=== PATIENT | female | born 1990 | race African-American/Black ===

== ENCOUNTER 2016-12-09 10:48 | Emergency (ER) | payer SELFPAY ==
--- NOTE | 2016-12-09 11:18 | ER Document Report ---
ED Medical Screen (RME) - General Stated Complaint: FEVER Notes: 26 yo female c/o bodyaches, cough, fever x 3 days. no flu shot TRAVEL OUTSIDE OF THE [place] IN LAST 30 DAYS: No - Related Data Allergies/Adverse Reactions: Penicillins Allergy (Verified 12/09/16 11:16) Past Medical History Psychiatric Medical History: Reports: Hx Anxiety - Immunizations Immunizations up to date: Yes Hx Diphtheria, Pertussis, Tetanus Vaccination: Yes - 2008 Physical Exam - Vital signs Vitals: Temp Pulse Resp BP Pulse Ox 98.2 F 95 12 108/60 100 12/09/16 10:53 12/09/16 10:53 12/09/16 10:53 12/09/16 10:53 12/09/16 10:53 Course - Vital Signs Vital signs: Temp Pulse Resp BP Pulse Ox 98.2 F 95 12 108/60 100 12/09/16 10:53 12/09/16 10:53 12/09/16 10:53 12/09/16 10:53 12/09/16 10:53
--- NOTE | 2016-12-09 13:47 | ER Document Report ---
[id number] Mode of Arrival: Ambulatory Information source: Patient Notes: 26 yr old female presents with complaints of body aches, joint pain, fevers and cough of 2 day duration. pt notes she did not have influenza vaccine this year and works at day care with multiple flu exposures TRAVEL OUTSIDE OF THE [place] IN LAST 30 DAYS: No - HPI Onset: Yesterday Onset/Duration: Persistent Quality of pain: Achy Severity: Mild Pain Level: 1 Associated symptoms: Body/muscle aches, Nonproductive cough Exacerbated by: Denies Relieved by: Denies Similar symptoms previously: No Recently seen / treated by doctor: No - Related Data Allergies/Adverse Reactions: Penicillins Allergy (Verified 12/09/16 11:16) Past Medical History - Social History Smoking Status: Never Smoker Cigarette use (# per day): No Chew tobacco use (# tins/day): No Smoking Education Provided: No Frequency of alcohol use: None Drug Abuse: None Family History: Reviewed & Not Pertinent, Hypertension Patient has suicidal ideation: No Patient has homicidal ideation: No Renal/ Medical History: Denies: Hx Peritoneal Dialysis Psychiatric Medical History: Reports: Hx Anxiety Past Surgical History: Reports: Hx Oral Surgery - wisdom teeth - Immunizations Immunizations up to date: Yes Hx Diphtheria, Pertussis, Tetanus Vaccination: Yes - 2008 Review of Systems - Review of Systems Notes: REVIEW OF SYSTEMS: CONSTITUTIONAL : admits ot fevers EENT: admtis t sore throat CARDIOVASCULAR: Denies chest pain. Denies palpitations or racing or irregular heart beat. Denies ankle edema. RESPIRATORY: Denies cough, cold, or chest congestion. Denies shortness of breath, difficulty breathing, or wheezing. GASTROINTESTINAL: Denies abdominal pain or distention. Denies nausea, vomiting , or diarrhea. Denies blood in vomitus, stools, or per rectum. Denies black, tarry stools. Denies constipation. GENITOURINARY: Denies difficulty urinating, painful urination, burning, frequency, blood in urine, or discharge. FEMALE GENITOURINARY: Denies vaginal bleeding, heavy or abnormal periods, irregular periods. Denies vaginal discharge or odor. MUSCULOSKELETAL: admits to body aches SKIN: Denies rash, lesions or sores. HEMATOLOGIC : Denies easy bruising or bleeding. LYMPHATIC: Denies swollen, enlarged glands. NEUROLOGICAL: Denies confusion or altered mental status. Denies passing out or loss of consciousness. Denies dizziness or lightheadedness. Denies headache. Denies weakness or paralysis or loss of use of either side. Denies problems with gait or speech. Denies sensory loss, numbness, or tingling. Denies seizures. PSYCHIATRIC: Denies anxiety or stress. Denies depression, suicidal ideation, or homicidal ideation. ALL OTHER SYSTEMS REVIEWED AND NEGATIVE. Dictation was performed using [employer] voice recognition software PHYSICAL EXAMINATION: GENERAL: Well-appearing, well-nourished and in no acute distress. HEAD: Atraumatic, normocephalic. EYES: Pupils equal round and reactive to light, extraocular movements intact, conjunctiva are normal. ENT: Nares patent, oropharynx clear without exudates. Moist mucous membranes. NECK: Normal range of motion, supple without lymphadenopathy LUNGS: Breath sounds clear to auscultation bilaterally and equal. No wheezes rales or rhonchi. HEART: Regular rate and rhythm without murmurs ABDOMEN: Soft, nontender, nondistended abdomen. No guarding, no rebound. No masses appreciated. Female : deferred Musculoskeletal: Normal range of motion, no pitting or edema. No cyanosis. NEUROLOGICAL: Cranial nerves grossly intact. Normal speech, normal gait. Normal sensory, motor exams PSYCH: Normal mood, normal affect. SKIN: Warm, Dry, normal turgor, no rashes or lesions noted. Physical Exam - Vital signs Vitals: Temp Pulse Resp BP Pulse Ox 98.2 F 95 12 108/60 100 12/09/16 10:53 12/09/16 10:53 12/09/16 10:53 12/09/16 10:53 12/09/16 10:53 Course - Re-evaluation Re-evalutation: 12/09/16 15:57 Patient is positive for the fluid, given that is within 48 hours I will start the patient on Tamiflu and is otherwise stable for discharge Patient given restrict return precautions After performing a Medical Screening Examination, I estimate there is LOW risk for ACUTE CORONARY SYNDROME, RESPIRATORY FAILURE, SEPSIS OR MENINGITIS, thus I consider the discharge disposition reasonable. The patient and I have discussed the diagnosis and risks, and we agree with discharging home with close follow- up. We also discussed returning to the Emergency Department immediately if new or worsening symptoms occur. We have discussed the symptoms which are most concerning (e.g., changing or worsening pain, trouble swallowing or breathing, neck stiffness, fever) that necessitate immediate return. - Vital Signs Vital signs: Temp Pulse Resp BP Pulse Ox 98.3 F 79 20 99/57 L 97 12/09/16 14:02 12/09/16 14:02 12/09/16 14:02 12/09/16 14:02 12/09/16 14:02 Discharge - Discharge Clinical Impression: Influenza, Body aches Condition: Stable Disposition: HOME, SELF-CARE Instructions: Influenza ([facility]) [id number] Prescriptions: Oseltamivir Phosphate [Tamiflu 75 mg Capsule] 75 mg PO BID #10 capsule Forms: Return to Work
[2016-12-09 14:12] VITALS: BP 99/57
== END 2016-12-09 14:12 | disposition home or self-care (01) ==
LOC: ER 10:48
DX: J11.1 Influenza due to unidentified influenza virus with other respiratory manifestations (principal); M79.1 Myalgia; R50.9 Fever, unspecified; Z88.0 Allergy status to penicillin
CPT/HCPCS: 87804; 99283

== ENCOUNTER → 2017-02-22 | Outpatient (CLI) | payer MEDICAID ==
[2017-02-22 18:37] LABS: ADD HIVPANEL? NO; HIV (1 AND 2) ANTIBODY NEGATIVE (NEGATIVE)
== END ==
LOC: OD 16:35
PROVIDERS: ATTEND Specialist
DX: Z30.09 Encounter for other general counseling and advice on contraception (principal); Z11.3 Encounter for screening for infections with a predominantly sexual mode of transmission; Z11.4 Encounter for screening for human immunodeficiency virus [HIV]
CPT/HCPCS: 36415; 86592; 86701

== ENCOUNTER 2018-01-19 16:36 | Emergency (ER) | payer MEDICAID ==
--- NOTE | 2018-01-19 17:39 | ER Document Report ---
HPI - HPI Pain Level: 5 Context: Patient is a healthy 27-year-old female presenting to the ED complaining of acute onset of ear pain, sore throat, fever, body aches. Patient denies cough, chest pain, shortness of breath, abdominal pain, nausea or vomiting Associated Symptoms: Body/muscle aches, Chills, Earache, Fever, Headache, Sore throat. denies: Shortness of breath Exacerbated by: Denies Relieved by: Denies Similar symptoms previously: No Recently seen / treated by doctor: No - ROS Systems Reviewed and Negative: Yes All other systems reviewed and negative - CONSTITUTIONAL Constitutional: REPORTS: Fever - EENT EENT: REPORTS: Ear Pain - REPRODUCTIVE Reproductive: DENIES: : Past Medical History - General Information source: Patient - Social History Smoking Status: Unknown if Ever Smoked Frequency of alcohol use: None Lives with: Family Family History: Reviewed & Not Pertinent, Hypertension Patient has suicidal ideation: No Patient has homicidal ideation: No - Medical History Medical History: Negative Renal/ Medical History: Denies: Hx Peritoneal Dialysis Psychiatric Medical History: Reports: Hx Anxiety Past Surgical History: Reports: Hx Oral Surgery - wisdom teeth - Immunizations Immunizations up to date: Yes Hx Diphtheria, Pertussis, Tetanus Vaccination: Yes - 2008 Vertical Provider Document - CONSTITUTIONAL Agree With Documented VS: Yes - INFECTION CONTROL TRAVEL OUTSIDE OF THE [place] IN LAST 30 DAYS: No - HEENT HEENT: Atraumatic, Pharyngeal Tenderness, Pharyngeal Erythema, Tympanic Membrane Red - right TM injected - NECK Neck: Normal Inspection, Supple - RESPIRATORY Respiratory: Breath Sounds Normal, No Respiratory Distress - CARDIOVASCULAR Cardiovascular: Regular Rate, Regular Rhythm - GI/ABDOMEN Gastrointestinal: Abdomen Soft, Abdomen Non-Tender - NEURO Level of Consciousness: Awake, Alert, Appropriate - DERM Integumentary: Warm, Dry, No Rash Course - Re-evaluation Re-evalutation: 01/19/18 18:25 CBC showing mild leukocytosis. Rapid strep is negative. History and physical are consistent with a viral illness. Symptomatic treatment will be recommended. Discussed this plan with patient. Patient agreeable and stable for discharge 01/19/18 18:28 Patient eating and drinking here in the emergency department without any difficulty - Vital Signs Vital signs: Temp Pulse Resp BP Pulse Ox 99.9 F 88 12 103/51 L 99 01/19/18 16:50 01/19/18 16:50 01/19/18 16:50 01/19/18 16:50 01/19/18 16:50 - Laboratory Result Diagrams: 01/19/18 17:35 Discharge - Discharge Clinical Impression: Viral illness Condition: Stable Disposition: HOME, SELF-CARE Instructions: Fever ([facility]), Viral Syndrome ([facility])
[2018-01-19 18:02] LABS: ABSOLUTE BASOPHILS # (AUTO) 0.1 10^3/uL (0.0-0.2); ABSOLUTE EOSINOPHILS # (AUTO) 0.1 10^3/uL (0.0-0.6); ABSOLUTE LYMPHOCYTES (AUTO) 1.2 10^3/uL (0.5-4.7); ABSOLUTE MONOCYTES (AUTO) 1.1 10^3/uL (0.1-1.4); ABSOLUTE NEUT (AUTO) 8.7 10^3/uL (1.7-8.2); BASOPHILS % (AUTO) 0.5 % (0-2); EOSINOPHILS % (AUTO) 1.2 % (0-6); HEMATOCRIT 41.6 % (36.0-47.0); HEMOGLOBIN 13.4 g/dL (12.0-15.5); LYMPHOCYTES % (AUTO) 10.5 % (13-45); MEAN CORPUSCULAR HEMOGLOBIN 26.3 pg (27.0-33.4); MEAN CORPUSCULAR HGB CONC 32.1 g/dL (32.0-36.0); MEAN CORPUSCULAR VOLUME 82 fl (80-97); MONOCYTES % (AUTO) 9.9 % (3-13); PLATELET COUNT 194 10^3/uL (150-450); RED BLOOD COUNT 5.08 10^6/uL (3.72-5.28); RED CELL DISTRIBUTION WIDTH 14.2 % (11.5-14.0); SEGMENTED NEUTROPHILS % (AUTO) 77.9 % (42-78); TOTAL CELLS COUNTED % (AUTO) 100 %; WHITE BLOOD COUNT 11.2 10^3/uL (4.0-10.5)
[2018-01-19 18:41] VITALS: BP 109/59
== END 2018-01-19 18:41 | disposition home or self-care (01) ==
LOC: ER 16:36
DX: J02.9 Acute pharyngitis, unspecified (principal); H92.09 Otalgia, unspecified ear; B34.9 Viral infection, unspecified; R50.9 Fever, unspecified; M79.1 Myalgia; D72.829 Elevated white blood cell count, unspecified
CPT/HCPCS: 36415; 85025; 87070; 87077; 87880; 99283

== ENCOUNTER 2018-02-09 10:46 | Emergency (ER) | payer MEDICAID ==
[2018-02-09 10:50] VITALS: BP 103/49
[2018-02-09] MEDS ORDERED: DEXAMETHASONE SOD PHOS INJ 10 MG/1 ML VIAL IM ONE (11:31)
[2018-02-09] MEDS ORDERED: KETOROLAC TROMETHAMINE INJ/PF 30 MG/1 ML SDV IM ONE (11:31)
[2018-02-09] MEDS ORDERED: LORATADINE 10 MG TABLET PO ONE (11:33)
[2018-02-09] MEDS ORDERED: GUAIFENESIN 600 MG TABLET.SA PO ONE (11:33)
[2018-02-09] MEDS ORDERED: PSEUDOEPHEDRINE HCL 30 MG TABLET PO ONE (11:33)
--- NOTE | 2018-02-09 11:34 | ER Document Report ---
ED ENT - General Chief Complaint: Sore Throat Stated Complaint: SORE THROAT Time Seen by Provider: 02/09/18 11:08 Mode of Arrival: Ambulatory Information source: Patient Notes: 27-year-old female presented ED for complaint of sore throat 24 hours. She states she has also had a runny nose cough congestion. She states she had a bit up this morning but was not vomiting. Alert oriented speaking in full sentences pupils 3 equal and react to light walks with a even steady gait. TRAVEL OUTSIDE OF THE [place] IN LAST 30 DAYS: No - HPI Patient complains to provider of: Nose problem, Throat problem Onset: Yesterday Onset/Duration: Gradual, Worse Quality of pain: Sharp Severity: Moderate Pain Level: 3 Location of pain: Nose, Sinus, Throat Associated symptoms: Runny nose, Sinus pain, Sinus drainage, Sore throat Similar symptoms previously: Yes Recently seen / treated by doctor: No - Related Data Allergies/Adverse Reactions: Penicillins Allergy (Verified 02/09/18 10:47) Past Medical History - General Information source: Patient - Social History Smoking Status: Former Smoker Cigarette use (# per day): No Chew tobacco use (# tins/day): No Smoking Education Provided: No Frequency of alcohol use: Occasional Drug Abuse: None Occupation: [employer] Advisor Lives with: Grandparent(s) Family History: DM, Hypertension, Malignancy. denies: Arthritis, CAD, COPD, CVA , Hyperlipidemia, Thyroid Disfunction Patient has suicidal ideation: No Patient has homicidal ideation: No - Past Medical History Cardiac Medical History: Reports: None Pulmonary Medical History: Reports: None EENT Medical History: Reports: None Neurological Medical History: Reports: None Endocrine Medical History: Reports: None Renal/ Medical History: Reports: None Malignancy Medical History: Reports: None GI Medical History: Reports: None Musculoskeltal Medical History: Reports None Skin Medical History: Reports None Psychiatric Medical History: Reports: Hx Anxiety Traumatic Medical History: Reports: None Infectious Medical History: Reports: None Surgical Hx: Negative Past Surgical History: Reports: None, Hx Oral Surgery - wisdom teeth - Immunizations Immunizations up to date: Yes Hx Diphtheria, Pertussis, Tetanus Vaccination: Yes - 2008 Review of Systems - Review of Systems Constitutional: Recent illness EENT: Nose congestion, Nose discharge, Sinus pressure, Sinus discharge, Throat pain Cardiovascular: No symptoms reported Respiratory: No symptoms reported Gastrointestinal: No symptoms reported Genitourinary: No symptoms reported Female Genitourinary: No symptoms reported Musculoskeletal: No symptoms reported Skin: No symptoms reported Hematologic/Lymphatic: No symptoms reported Neurological/Psychological: No symptoms reported -: Yes All other systems reviewed and negative Physical Exam - Vital signs Vitals: Temp Pulse Resp BP Pulse Ox 98.6 F 69 16 103/49 L 100 02/09/18 10:49 02/09/18 10:49 02/09/18 10:49 02/09/18 10:49 02/09/18 10:49 Interpretation: Normal - General General appearance: Appears well, Alert - HEENT Head: Normocephalic, Atraumatic Eyes: Normal Pupils: PERRL Ears: Normal External canal: Normal Tympanic membrane: Normal Nasal: Swelling Mouth/Lips: Normal Mucous membranes: Normal Pharynx: Erythema, Post nasal drainage, Tonsillar hypertrophy. No: Exudate, Retropharyngeal abscess, Uvular edema, Potential airway comprom. Neck: Anterior cervical chain - Respiratory Respiratory status: No respiratory distress Chest status: Nontender Breath sounds: Nonproductive cough Chest palpation: Normal - Cardiovascular Rhythm: Regular Heart sounds: Normal auscultation Murmur: No - Abdominal Inspection: Normal Distension: No distension Bowel sounds: Normal Tenderness: Nontender Organomegaly: No organomegaly - Back Back: Normal, Nontender - Extremities General upper extremity: Normal inspection, Nontender, Normal color, Normal ROM , Normal temperature General lower extremity: Normal inspection, Nontender, Normal color, Normal ROM , Normal temperature, Normal weight bearing. No: Herbert's sign - Neurological Neuro grossly intact: Yes Cognition: Normal Orientation: AAOx4 Ryland Coma Scale Eye Opening: Spontaneous Sevier Coma Scale Verbal: Oriented Sevier Coma Scale Motor: Obeys Commands Sevier Coma Scale Total: 15 Speech: Normal Motor strength normal: LUE, RUE, LLE, RLE Sensory: Normal - Psychological Associated symptoms: Normal affect, Normal mood - Skin Skin Temperature: Warm Skin Moisture: Dry Skin Color: Normal Course - Re-evaluation Re-evalutation: 02/09/18 15:05 Patient was treated with Decadron and Toradol for the sore throat strep test came back negative. She was then treated with Claritin and Sudafed and Mucinex. Patient was given instructions for upper respiratory infection and discharged home. After performing a Medical Screening Examination, I estimate there is LOW risk for ACUTE CORONARY SYNDROME, RESPIRATORY FAILURE, SEPSIS OR MENINGITIS, thus I consider the discharge disposition reasonable. I have reevaluated this patient multiple times and no significant life threatening changes are noted. The patient and I have discussed the diagnosis and risks, and we agree with discharging home with close follow-up. We also discussed returning to the Emergency Department immediately if new or worsening symptoms occur. We have discussed the symptoms which are most concerning (e.g., changing or worsening pain, trouble swallowing or breathing, neck stiffness, fever) that necessitate immediate return. - Vital Signs Vital signs: Temp Pulse Resp BP Pulse Ox 98.6 F 69 16 103/49 L 100 02/09/18 10:49 02/09/18 10:49 02/09/18 10:49 02/09/18 10:49 02/09/18 10:49 Discharge - Discharge Clinical Impression: Sore throat URI (upper respiratory infection) Qualifiers: URI type: unspecified URI Qualified Code(s): J06.9 - Acute upper respiratory infection, unspecified Condition: Stable Disposition: HOME, SELF-CARE Instructions: Family Physicians / Practices Additional Instructions: SORE THROAT: Sore throats may be caused by viruses, bacteria, or fungi. Most are due to a virus, and must get better on their own. Bacterial sore throats, particularly those due to "strep," need treatment with antibiotics. If an antibiotic is prescribed, be sure to take the medication for a full 10 days. Failure to take the antibiotic can result in complications such as rheumatic fever. Sometimes, an injection of antibiotics is given instead of pills or liquid. This single "shot" is equal in effectiveness to the oral medication. To relieve symptoms, take acetaminophen for pain. Sip clear liquids frequently, or eat popsicles or ice chips. Anesthetic sprays or lozenges may help. Make sure the air in the room is not too dry. Avoid using decongestants or antihistamines. Call the doctor if there is no improvement in two days, or if you have difficulty breathing, increasing throat pain, high fever, rash, or frequent vomiting. UPPER RESPIRATORY ILLNESS: You have a viral infection of the respiratory passages -- a "cold." This common infection causes nasal congestion, drainage, and often sore throat and cough. It is highly contagious. The disease usually lasts about 10 to 14 days. There is no "cure" for the viral infection -- it must run its course. If there is a complication, such as bacterial infection in the nose, sinuses, middle ear, or bronchial tubes, antibiotics may be required. The antibiotics won't affect the virus. Drink plenty of fluids. A humidifier may help. An expectorant medication or decongestant may make you more comfortable. Use acetaminophen or ibuprofen for fever or aches. See the doctor if fever persists over two days, if there is any significant worsening of your symptoms, or if you simply fail to improve as expected. DECONGESTANT MEDICATION: A decongestant medicine has been . Often this medicine is combined in the same tablet with an antihistamine or expectorant. This type of medicine is helpful in treating a bad cold or sinus condition, as well as in treatment of the nasal congestion of hay fever. It is not of much benefit for lung infections. Decongestant medicines are related to stimulants. They can cause an increase in blood pressure and heart rate. Persons with heart disease and high blood pressure should not take decongestants without discussing this with the physician. If you develop palpitations, chest pain, headache, or tremors, stop the medicine and consult your physician. COUGH-SUPPRESSANT & EXPECTORANT MEDICATION: You are to use a cough medication as needed for relief of symptoms. This medicine is a combination of an expectorant (to make the mucous thinner and more easily "coughed up") and a cough suppressant (to reduce the frequency of coughing). The cough-suppressant medicine is related to narcotics. You may experience mild nausea and sleepiness. Some patients who are very sensitive to narcotics may have stomach pain from this medicine. Taking the medicine with food reduces these side effects. Do not drive or work with machinery until you know how this medicine affects you. The expectorant should have no side effects. Iodine-containing expectorants (such as organidin) should not be taken by persons with active thyroid disease unless approved by your doctor. Call the doctor if you develop shortness of breath, hives, rash, itching, lightheadedness, or severe nausea and vomiting. USE OF ACETAMINOPHEN (Tylenol): Acetaminophen may be taken for pain relief or fever control. It's much safer than aspirin, offering a wider range of "safe" dosages. It is safe during . Some brand names are Tylenol, Panadol, Datril, Anacin 3, Tempra, and Liquiprin. Acetaminophen can be repeated every four hours. The following are maximum recommended dosages: >89 pounds or adults 650 mg to 900 mg Acetaminophen can be repeated every four hours. Maximum dose not to exceed 4000 mg a day. Toradol Injection You have been given an injection of ketorolac tromethamine (Toradol). This is an excellent, safe drug for pain control. It also has potent antiinflammatory action. You should have significant pain relief within about one hour. Toradol is not addicting and is non-sedating. It does not interfere with driving or work. Call or return if you develop itching, hives, shortness of breath, or rash. STEROID MEDICATION: You have been given a medicine of the cortisone/steroid class. This medication is used to control inflammation or allergy. It is usually only given for a short period of time, until the acute process subsides. There are usually no side effects from short-term use of cortisone-like medications. Some persons feel an increased sense of well-being and are not sleepy at bedtime. Long-term use of cortisone medications is best avoided, unless required for a severe condition. If your condition does not remit, or relapses after the course of corticosteroid medication, you should consult your physician. You will treated today with Claritin 10 mg, Sudafed 30 mg, Mucinex 600 mg, Toradol 30 mg IM, and Decadron 10 mg IM for your cough cold congestion sore throat. These are all [id number] except for the Toradol and Decadron dose or a one-time dose. You cannot take any ibuprofen for the next 8 hours after getting this Toradol. Other things he can help for your cough cold symptoms are Flonase nasal spray which you can also buy [id number] follow the directions on the box and salt and soda solution gargles will also help your sore throat. Please call and follow-up with your primary doctor. Salt and soda solution 1 quart of water 1 tablespoon of salt 1 teaspoon of baking soda Mixed 3 ingredients together and boil for 1 minute Placed in a covered quart jar Use 1/2 ounce of cold solution to gargle 3 times a day FOLLOW-UP CARE: If you have been referred to a physician for follow-up care, call the physician s office for an appointment as you were instructed or within the next two days. If you experience worsening or a significant change in your symptoms, notify the physician immediately or return to the Emergency Department at any time for re-evaluation. Forms: Return to Work
== END 2018-02-09 11:48 | disposition home or self-care (01) ==
LOC: ER 10:46
DX: J02.9 Acute pharyngitis, unspecified (principal); J06.9 Acute upper respiratory infection, unspecified; J35.1 Hypertrophy of tonsils; R09.89 Other specified symptoms and signs involving the circulatory and respiratory systems; R05 Cough; R09.81 Nasal congestion; R09.82 Postnasal drip; Z88.0 Allergy status to penicillin; Z87.891 Personal history of nicotine dependence
CPT/HCPCS: 99283; 87070; 87880; 87077; J3490 ×2; J1885; J1100

== ENCOUNTER 2018-03-08 13:44 | Emergency (ER) | payer MEDICAID ==
--- NOTE | 2018-03-08 14:32 | ER Document Report ---
ED Medical Screen (RME) - General Chief Complaint: Chest Pain Stated Complaint: CHEST PAIN Time Seen by Provider: 03/08/18 14:24 Notes: RAPID MEDICAL EVALUATION DISCLOSURE I have seen this patient as part of a Rapid Medical Evaluation and, if applicable, placed any initially appropriate orders. The patient will be seen and fully evaluated, including a full history and physical exam, by a provider ( in Main ED or Fast Track) when a room becomes available. 27-year-old female here with several days of palpitations shortness of breath and chest tightness. The symptoms are intermittent. She has not noticed anything that makes them worse. Specifically, breathing and exertion has not made them worse. When the symptoms first started, she did not feel anxious, but now she is starting to feel anxious because she is scared about the symptoms. She has a history of anxiety but does not take any medication for it. She reports that when she has an anxiety attack, she does not normally have SOB chest pain or palpitations. She denies any recent medication changes, cocaine use, excessive caffeine/energy drink intake. She has no prior history of similar. EXAM CTAB RRR TRAVEL OUTSIDE OF THE [place] IN LAST 30 DAYS: No - Related Data Allergies/Adverse Reactions: Penicillins Allergy (Verified 02/09/18 10:47) Past Medical History Renal/ Medical History: Denies: Hx Peritoneal Dialysis Psychiatric Medical History: Reports: Hx Anxiety Past Surgical History: Reports: Hx Oral Surgery - wisdom teeth - Immunizations Immunizations up to date: Yes Hx Diphtheria, Pertussis, Tetanus Vaccination: Yes - 2008 Physical Exam - Vital signs Vitals: Temp Pulse Resp BP Pulse Ox 98.4 F 80 18 109/45 L 96 03/08/18 13:50 03/08/18 13:50 03/08/18 13:50 03/08/18 13:50 03/08/18 13:50 Course - Vital Signs Vital signs: Temp Pulse Resp BP Pulse Ox 98.4 F 80 18 109/45 L 96 03/08/18 13:50 03/08/18 13:50 03/08/18 13:50 03/08/18 13:50 03/08/18 13:50
--- NOTE | 2018-03-08 15:01 | ER Document Report ---
ED General - General Chief Complaint: Chest Pain Stated Complaint: CHEST PAIN Time Seen by Provider: 03/08/18 14:24 Notes: The patient is a 27-year-old female, past medical history anxiety (not on any medications), presents with intermittent feeling like her heart is fluttering. She has these episodes will occur randomly throughout the day and last a few seconds. She does admit to increased stress, but denies current chest pain, leg swelling, caffeine use, cocaine abuse, OCP use, blurry vision or syncope. TRAVEL OUTSIDE OF THE [place] IN LAST 30 DAYS: No - Related Data Allergies/Adverse Reactions: Penicillins Allergy (Verified 03/08/18 15:07) Past Medical History - General Information source: Patient - Social History Smoking Status: Never Smoker Chew tobacco use (# tins/day): No Frequency of alcohol use: None Drug Abuse: None Family History: DM, Hypertension, Malignancy. denies: Arthritis, CAD, COPD, CVA , Hyperlipidemia, Thyroid Disfunction Patient has suicidal ideation: No Patient has homicidal ideation: No Renal/ Medical History: Denies: Hx Peritoneal Dialysis Psychiatric Medical History: Reports: Hx Anxiety Past Surgical History: Reports: Hx Oral Surgery - wisdom teeth - Immunizations Immunizations up to date: Yes Hx Diphtheria, Pertussis, Tetanus Vaccination: Yes - 2008 Review of Systems - Review of Systems Notes: REVIEW OF SYSTEMS: CONSTITUTIONAL: -fevers, -chills EENT: -eye pain, -difficulty swallowing, -nasal congestion CARDIOVASCULAR: -chest pain, -syncope, +palpitations RESPIRATORY: -cough, -SOB GASTROINTESTINAL: -abdominal pain, -nausea, -vomiting, -diarrhea GENITOURINARY: -dysuria, -hematuria MUSCULOSKELETAL: -back pain, -neck pain SKIN: -rash or skin lesions. HEMATOLOGIC: -easy bruising or bleeding. LYMPHATIC: -swollen, enlarged glands. NEUROLOGICAL: -altered mental status or loss of consciousness, -headache, - neurologic symptoms PSYCHIATRIC: -anxiety, -depression. ALL OTHER SYSTEMS REVIEWED AND NEGATIVE. Physical Exam - Vital signs Vitals: Temp Pulse Resp BP Pulse Ox 98.4 F 80 18 109/45 L 96 03/08/18 13:50 03/08/18 13:50 03/08/18 13:50 03/08/18 13:50 03/08/18 13:50 - Notes Notes: PHYSICAL EXAMINATION: GENERAL: Well-appearing, well-nourished and in no acute distress. HEAD: Atraumatic, normocephalic. EYES: Pupils equal round and reactive to light, extraocular movements intact, sclera anicteric, conjunctiva are normal. ENT: nares patent, oropharynx clear without exudates. Moist mucous membranes. NECK: Normal range of motion, supple without lymphadenopathy LUNGS: Breath sounds clear to auscultation bilaterally and equal. No wheezes rales or rhonchi. HEART: Regular rate and rhythm without murmurs ABDOMEN: Soft, nontender, normoactive bowel sounds. No guarding, no rebound. No masses appreciated. EXTREMITIES: Normal range of motion, no pitting or edema. No cyanosis. NEUROLOGICAL: Cranial nerves grossly intact. Normal speech, normal gait. Normal sensory and motor exams. PSYCH: Normal mood, normal affect. SKIN: Warm, Dry, normal turgor, no rashes or lesions noted. Course - Re-evaluation Re-evalutation: Patient says she is feeling the fluttering episodes while she was on the monitor. The monitor did not show any arrhythmias during these episodes. EKG also did not show evidence of prolonged QT syndrome, WPW or B[place]. Chest x- ray shows a possible neoplasm or nipples. With her age and lack of risk factors , suspect that they are nipples and not a neoplasm. Instructed her to follow- up with cardiology and her primary care physician. Also provided her with stress relieving exercises. Given strict return precautions and she understands. - Vital Signs Vital signs: Temp Pulse Resp BP Pulse Ox 98.0 F 78 18 122/78 99 03/08/18 16:43 03/08/18 16:43 03/08/18 16:43 03/08/18 16:43 03/08/18 16:43 - Laboratory Result Diagrams: 03/08/18 14:42 03/08/18 14:42 Laboratory results interpreted by me: 03/08/18 03/08/18 14:42 14:42 RBC 5.34 H MCH 26.5 L RDW 14.3 H Eosinophils % 7.0 H Glucose 74 L - Diagnostic Test Radiology reviewed: Image reviewed, Reports reviewed Radiology results interpreted by me: CXR: NAD - EKG Interpretation by Me EKG shows normal: Sinus rhythm, [place], Intervals, QRS Complexes, ST-T Waves Rate: Normal Discharge - Discharge Clinical Impression: Fluttering sensation of heart Condition: Stable Disposition: HOME, SELF-CARE Additional Instructions: CHEST PAIN OF UNCLEAR CAUSE: The exact cause of your chest pain isn't clear. Fortunately, there is no evidence of a dangerous medical condition. Further testing may be required to find the source of the pain. Most often, we find that this pain is coming from the chest wall -- the muscles or rib joints in the chest. But chest pain can come from the lung and lung lining, the esophagus, the heart valves or heart lining, and even the stomach or gallbladder. Rest. Eat lightly until the pain is gone. We may prescribe medicine for pain and inflammation. You should call the physician immediately if the pain radiates to the shoulder, jaw or arms; if you start to run a fever or develop a cough; or if you develop shortness of breath, or other new or alarming symptoms. NORMAL EXAM AND WORKUP: At this time, your examination and workup show no significant abnormality. No significant abnormal physical findings were noted. All laboratory, EKG, and imaging (x-ray, CT scans, ultrasound) studies that were ordered show no significant abnormality. Although your examination and all studies that were ordered showed no significant abnormal finding, there are no examinations and no studies that are 100% accurate. There is always the possibility that some abnormality could exist and not be detected with physical examination or within the limits and capabilities of laboratory and other studies. You should return or follow up as you were instructed on your visit today for further evaluation if your symptoms do not resolve. FOLLOW-UP CARE: If you have been referred to a physician for follow-up care, call the physician s office for an appointment as you were instructed or within the next two days. If you experience worsening or a significant change in your symptoms, notify the physician immediately or return to the Emergency Department at any time for re-evaluation. Palpitations (Irregular/Rapid Heartrate) Irregular or rapid heartbeat is called "palpitation." To diagnose the cause of palpitation, we have to "catch it in the act" with an EKG. Sinus Tachycardia: This is a rapid (but NORMAL) rhythm that can be due to fever, pain, anxiety, lack of sleep, over-exertion, or drugs. Cold medications, caffeine, and diet pills are particularly likely to cause tachycardia. Usually , all that's required is rest, reassurance, and avoiding caffeine, alcohol, nicotine, and unnecessary medicines. Paroxysmal Atrial Tachycardia (PAT): This abnormally rapid heartbeat is caused by a "short circuit" in the electrical system of the heart. It is not dangerous, unless other heart disease is present. These attacks of PAT may occur occasionally for years. Medication is available for treatment. Paroxysmal Atrial Fibrillation or Atrial Flutter: This is irregular electrical activity in the upper heart chamber. These abnormal rhythms often occur with valve disease or in hearts damaged by hardening of the arteries. These rhythms usually require further testing, for example a cardiac echo. Premature Beats: Extra beats occur more commonly after caffeine, nicotine , alcohol, cold pills, diet pills. Emotional stress or fatigue also provoke them. Extra beats are only dangerous when heart disease is present. They usually need no treatment. If they're frequent, or if evidence of heart disease develops, medication can be given to suppress them. If we were unable to "catch" the palpitations on EKG, you should try to get an EKG immediately if the symptoms begin again. Contact the physician at once if you develop persistent lightheadedness, shortness of breath, chest pain , or swelling of the ankles. Referrals: DELICIA LOPEZ MD [ACTIVE STAFF] - Follow up as needed
[2018-03-08 15:10] LABS: ABSOLUTE BASOPHILS # (AUTO) 0.1 10^3/uL (0.0-0.2); ABSOLUTE EOSINOPHILS # (AUTO) 0.4 10^3/uL (0.0-0.6); ABSOLUTE LYMPHOCYTES (AUTO) 2.2 10^3/uL (0.5-4.7); ABSOLUTE MONOCYTES (AUTO) 0.4 10^3/uL (0.1-1.4); ABSOLUTE NEUT (AUTO) 2.1 10^3/uL (1.7-8.2); BASOPHILS % (AUTO) 1.3 % (0-2); HEMATOCRIT 43.8 % (36.0-47.0); HEMOGLOBIN 14.2 g/dL (12.0-15.5); LYMPHOCYTES % (AUTO) 42.7 % (13-45); MEAN CORPUSCULAR HEMOGLOBIN 26.5 pg (27.0-33.4); MEAN CORPUSCULAR HGB CONC 32.4 g/dL (32.0-36.0); MEAN CORPUSCULAR VOLUME 82 fl (80-97); MONOCYTES % (AUTO) 6.9 % (3-13); PLATELET COUNT 246 10^3/uL (150-450); RED BLOOD COUNT 5.34 10^6/uL (3.72-5.28); RED CELL DISTRIBUTION WIDTH 14.3 % (11.5-14.0); SEGMENTED NEUTROPHILS % (AUTO) 42.1 % (42-78); TOTAL CELLS COUNTED % (AUTO) 100 %; WHITE BLOOD COUNT 5.1 10^3/uL (4.0-10.5)
[2018-03-08 15:30] LABS: ANION GAP 15 (5-19); BLOOD UREA NITROGEN 15 mg/dL (7-20); CALCIUM 9.8 mg/dL (8.4-10.2); CARBON DIOXIDE 26 mmol/L (22-30); CHLORIDE 104 mmol/L (98-107); GLUCOSE 74 mg/dL (75-110); PHOSPHORUS 4.3 mg/dL (2.5-4.5); SODIUM 144.5 mmol/L (137-145)
--- NOTE | 2018-03-08 16:11 | RADIOLOGY REPORT (SQ) ---
EXAM DESCRIPTION: CHEST 2 VIEWS COMPLETED DATE/TIME: 03/08/2018 3:53 pm REASON FOR STUDY: chest pain COMPARISON: None. EXAM PARAMETERS: NUMBER OF VIEWS: two views TECHNIQUE: Digital Frontal and Lateral radiographic views of the chest acquired. RADIATION DOSE: NA LIMITATIONS: none FINDINGS: LUNGS AND PLEURA: No opacities, masses or pneumothorax. No pleural effusion. Small nodula r density is identified projected in the right mid hemithorax presumably representing a nipple shadow . If clinically warranted an oblique view of the chest or repeat PA chest with nipple markers is rec ommended. MEDIASTINUM AND HILAR STRUCTURES: No masses or contour abnormalities. HEART AND VASCULAR STRUCTURES: Heart normal size. No evidence for failure. BONES: No acute findings. HARDWARE: None in the chest. OTHER: No other significant finding. IMPRESSION: Small nodular density on the right is noted above presumably representing a nipple shado w however other etiologies cannot be completely excluded. If clinically warranted a repeat film with nipple markers or shallow oblique view of the chest is recommended. Other findings as noted above TECHNICAL DOCUMENTATION: JOB ID: [id number] [employer]- All Rights Reserved Reading location - IP/workstation name: [email or web address]
[2018-03-08 16:43] VITALS: BP 122/78
--- NOTE | 2018-03-08 21:14 | EKG REPORT ---
SEVERITY:- NORMAL ECG - SINUS RHYTHM : Confirmed by: Chasity Victoria 08-Mar-2018 21:13:10
== END 2018-03-08 16:43 | disposition home or self-care (01) ==
LOC: ER 13:44
DX: R07.9 Chest pain, unspecified (principal); I49.8 Other specified cardiac arrhythmias
CPT/HCPCS: 36415; 71046; 80048; 81025; 83735; 84100; 84443; 84484; 85025; 93005; 93010; 99285

== ENCOUNTER 2018-04-14 21:00 | Emergency (ER) | payer MEDICAID ==
[2018-04-14] MEDS ORDERED: SULFAMETHOXAZOLE/TRIMETHOPRIM 800-160 MG TABLET PO ONE (22:19)
[2018-04-14] MEDS ORDERED: HYDROCODONE/ACETAMINOPHEN 5-325 MG TABLET PO ONE (22:19)
--- NOTE | 2018-04-14 22:25 | ER Document Report ---
ED ENT - General Chief Complaint: Ear Pain Stated Complaint: LEFT EAR PAIN Time Seen by Provider: 04/14/18 21:06 Mode of Arrival: Ambulatory Information source: Patient TRAVEL OUTSIDE OF THE [place] IN LAST 30 DAYS: No - HPI Patient complains to provider of: Ear problem Notes: Patient states she has had some pain in the left ear canal for the last few days. Today it seemed to get worse now she is having pain and swelling outside of the ear. No fever. No drainage. No nausea, vomiting, diarrhea. She denies any injury. She denies any chest pain or shortness of breath. No headache. No neck pain or swelling. No other complaints. Pain is worse with touching the area, nothing makes it better. - Related Data Allergies/Adverse Reactions: Penicillins Allergy (Verified 03/08/18 15:07) Past Medical History - Social History Smoking Status: Never Smoker Chew tobacco use (# tins/day): No Frequency of alcohol use: Occasional Drug Abuse: None Family History: DM, Hypertension, Malignancy. denies: Arthritis, CAD, COPD, CVA , Hyperlipidemia, Thyroid Disfunction Patient has suicidal ideation: No Patient has homicidal ideation: No Renal/ Medical History: Denies: Hx Peritoneal Dialysis Psychiatric Medical History: Reports: Hx Anxiety Past Surgical History: Reports: Hx Oral Surgery - wisdom teeth - Immunizations Immunizations up to date: Yes Hx Diphtheria, Pertussis, Tetanus Vaccination: Yes - 2008 Review of Systems - Review of Systems -: Yes All other systems reviewed and negative Physical Exam - Vital signs Vitals: Temp Pulse Resp BP Pulse Ox 98.7 F 82 17 108/43 L 100 04/14/18 21:02 04/14/18 21:02 04/14/18 21:02 04/14/18 21:02 04/14/18 21:02 - Notes Notes: GENERAL: alert, cooperative, nontoxic, no distress. HEAD: normocephalic, atraumatic EYES: conjunctiva pink without discharge, no external redness or swelling. EARS: Slight swelling to the left tragus with small cystic structure that is tender just to the entrance of the left ear canal. TM is unremarkable. There is no redness or swelling to the mastoid. Right ear is normal. NOSE: atraumatic, no external swelling MOUTH/THROAT: mucous membranes moist and pink NECK: soft, supple, full range of motion, no meningismus. CHEST: no distress, lungs clear and equal throughout. No wheezing, rales, rhonchi. CARDIAC: regular rate and rhythm, no murmur, normal capillary refill, normal pulses. BACK: full range of motion, no CVA tenderness. EXTREMITIES: full range of motion of all extremities. No redness, no swelling. NEURO: alert and oriented 3, no focal deficits, full range of motion of all extremities. PYSCH: appropriate mood, affect. Patient is cooperative. SKIN: pink, warm, dry, no rash. Course - Re-evaluation Re-evalutation: 04/14/18 22:21 Patient is nontoxic-appearing with stable vitals. She with complaints of left ear pain. She is noted to have what appears to be an infected cyst at the entrance of her left ear canal. She does have some mild swelling just in front of the left tragus as well. There is no significant swelling or tenderness of the face. She is afebrile. She is not diabetic. She looks well otherwise. Patient was given pain medication and Bactrim here in the emergency department. I was able to I&D this infected cyst and obtained a small amount of purulent cystic type material. Patient tolerated procedure well. This point the patient will be discharged home with a prescription for [place], Bactrim, instructions to apply warm compresses to the sore area. She will be given a referral to ENT. She is instructed to follow-up with ENT at the next available appointment. Follow-up sooner for increasing pain, fever, numbness, tingling, weakness, redness, swelling, persistent vomiting, or for any further concerns. The patient's emergency department workup and current diagnosis were explained to the patient and or family. Follow-up instructions were provided. Medications if prescribed were discussed. Instructions for when to return to the emergency department including specific worrisome symptoms were discussed with the patient and/or family. - Vital Signs Vital signs: Temp Pulse Resp BP Pulse Ox 98.7 F 82 17 108/43 L 100 04/14/18 21:02 04/14/18 21:02 04/14/18 21:02 04/14/18 21:02 04/14/18 21:02 Procedures - Incision and Drainage Left ear canal Type: Simple Anesthetic type: 1% Lidocaine Blade size: 11 I&D procedure: Shurclens applied Incision Method: Incision made by scalpel Amount/type of drainage: Small purulent cystic material Notes: 04/14/18 22:23 Patient tolerated procedure well with no immediate complications. Hemostats were used to break up any potential loculations. Discharge - Discharge Clinical Impression: Infected cyst of skin Condition: Stable Disposition: HOME, SELF-CARE Instructions: Abscess ([facility]) Additional Instructions: Take medication as prescribed. Apply warm compresses to the sore area. Follow- up with ENT at the next available appointment. Follow-up sooner for increasing pain, fever, redness, swelling, persistent vomiting, or for any further concerns. Prescriptions: Hydrocodone/Acetaminophen [[place] 5-325 mg Tablet] 2 tab PO Q6H PRN #10 tab PRN Reason: Sulfamethoxazole/Trimethoprim [Bactrim Ds Tablet] 1 each PO BID #20 tablet Forms: Smoking Cessation Education Referrals: SHELIA YUN DO [ASSOCIATE] - Follow up as needed
[2018-04-14 22:54] VITALS: BP 106/58
== END 2018-04-14 22:54 | disposition home or self-care (01) ==
LOC: ER 21:00
PROC: 0H93XZZ Drainage of Left Ear Skin, External Approach (ICD-10-PCS; principal; 2018-04-14)
DX: L08.89 Other specified local infections of the skin and subcutaneous tissue (principal); L72.9 Follicular cyst of the skin and subcutaneous tissue, unspecified; H92.02 Otalgia, left ear; H93.8X2 Other specified disorders of left ear
CPT/HCPCS: 99283; 69020; J3490

== ENCOUNTER 2018-08-10 10:58 | Emergency (ER) | payer MEDICAID ==
[2018-08-10 11:06] VITALS: BP 102/64
[2018-08-10] MEDS ORDERED: MUPIROCIN 2% OINTMENT 22 GM TP ONE (11:47)
--- NOTE | 2018-08-10 11:50 | ER Document Report ---
HPI - HPI Patient complains to provider of: sore in left ear Onset: Other - several days Onset/Duration: Gradual Pain Level: 3 Context: 28 yo female with sore in base of left ear canal for feveral days. was told to return if she got it back again. Associated Symptoms: None Exacerbated by: Movement Relieved by: Denies Similar symptoms previously: Yes Recently seen / treated by doctor: No - ROS ROS below otherwise negative: Yes Systems Reviewed and Negative: Yes All other systems reviewed and negative - REPRODUCTIVE Reproductive: DENIES: : Past Medical History - General Information source: Patient - Social History Smoking Status: Unknown if Ever Smoked Lives with: Family Family History: DM, Hypertension, Malignancy Renal/ Medical History: Denies: Hx Peritoneal Dialysis Psychiatric Medical History: Reports: Hx Anxiety Past Surgical History: Reports: Hx Oral Surgery - wisdom teeth - Immunizations Immunizations up to date: Yes Hx Diphtheria, Pertussis, Tetanus Vaccination: Yes - 2008 Vertical Provider Document - CONSTITUTIONAL Agree With Documented VS: Yes Exam Limitations: No Limitations General Appearance: No Apparent Distress - INFECTION CONTROL TRAVEL OUTSIDE OF THE [place] IN LAST 30 DAYS: No - HEENT Notes: open coemdone 2 mm base of left ear canal-external portion. no abscess Course - Vital Signs Vital signs: Temp Pulse Resp BP Pulse Ox 98.4 F 77 16 102/64 99 08/10/18 11:05 08/10/18 11:05 08/10/18 11:05 08/10/18 11:05 08/10/18 11:05 Discharge - Discharge Clinical Impression: left ear open comedone Condition: Good Disposition: HOME, SELF-CARE Additional Instructions: You are seen today for a open comedone or pimple in the base of your left ear canal. warm compress bactroban small amount 3 times per day for 5 days return if increased paink swelling fever see the dermatololgist Referrals: KIM KATZ, [ACTIVE STAFF] - Follow up as needed
== END 2018-08-10 13:05 | disposition home or self-care (01) ==
LOC: ER 10:58
DX: K21.0 Gastro-esophageal reflux disease with esophagitis (principal); R10.9 Unspecified abdominal pain; R11.2 Nausea with vomiting, unspecified
CPT/HCPCS: 99282; J3490

== ENCOUNTER 2019-09-23 16:17 | Emergency (ER) | payer MEDICAID ==
[2019-09-23 16:30] VITALS: BP 131/66
[2019-09-23] MEDS ORDERED: CIPROFLOXACIN HCL/DEXAMETH OTIC DROP 7.5 ML AD ONE (17:03)
--- NOTE | 2019-09-23 17:06 | ER Document Report ---
HPI - HPI Time Seen by Provider: 09/23/19 17:00 Pain Level: 2 Notes: Otherwise healthy 29-year-old female presenting with left ear pain x2 weeks. Patient reports it feels like there is something clogged. Patient denies any fevers or drainage. - REPRODUCTIVE Reproductive: DENIES: : Past Medical History - General Information source: Patient - Social History Smoking Status: Current Every Day Smoker Chew tobacco use (# tins/day): No Frequency of alcohol use: None Drug Abuse: None Family History: DM, Hypertension, Malignancy Patient has suicidal ideation: No Patient has homicidal ideation: No Renal/ Medical History: Denies: Hx Peritoneal Dialysis Psychiatric Medical History: Reports: Hx Anxiety Past Surgical History: Reports: Hx Oral Surgery - wisdom teeth - Immunizations Immunizations up to date: Yes Hx Diphtheria, Pertussis, Tetanus Vaccination: Yes - 2008 Vertical Provider Document - CONSTITUTIONAL Notes: PHYSICAL EXAMINATION: GENERAL: Well-appearing, well-nourished and in no acute distress. HEAD: Atraumatic, normocephalic. EYES: Pupils equal round extraocular movements intact, conjunctiva are normal. ENT: Nares patent, left TM bulging and erythematous, left ear canal macerated and erythematous. Right ear appears unremarkable. NECK: Normal range of motion LUNGS: No respiratory distress Musculoskeletal: Normal range of motion NEUROLOGICAL: Normal speech, normal gait. PSYCH: Normal mood, normal affect. SKIN: Warm, Dry, normal turgor, no rashes or lesions noted. - INFECTION CONTROL TRAVEL OUTSIDE OF THE [place] IN LAST 30 DAYS: No Course - Re-evaluation Re-evalutation: Exam consistent with otitis externa and otitis media will be started on appropriate medications discussed ED return precautions. - Vital Signs Vital signs: Temp Pulse Resp BP Pulse Ox 98.3 F 85 20 131/66 H 99 09/23/19 16:29 09/23/19 16:29 09/23/19 16:29 09/23/19 16:29 09/23/19 16:29 Discharge - Discharge Clinical Impression: Otitis media Qualifiers: Otitis media type: unspecified Chronicity: acute Qualified Code(s): H66.90 - Otitis media, unspecified, unspecified ear Otitis externa Qualifiers: Otitis externa type: unspecified type Chronicity: acute Laterality: unspecified laterality Qualified Code(s): H60.509 - Unspecified acute noninfective otitis externa, unspecified ear Condition: Stable Disposition: HOME, SELF-CARE Additional Instructions: You have been diagnosed as having an ear infection. Please take the medications as prescribed. Follow-up with your primary care provider or your nose and throat doctor as needed. Return if you become lethargic, have persistent vomiting, become confused, have facial swelling, worsening pain despite antibiotics, or any other symptoms that are concerning to you. Please also take Tylenol and ibuprofen as directed on the bottle. Prescriptions: Azithromycin [Zithromax 250 mg Tablet] 250 mg PO ASDIR PRN #6 tablet PRN Reason: Referrals: LAURA CESPEDES, HAND ALMOND BLANCHER-C [Primary Care Provider] - Follow up as needed
== END 2019-09-23 17:13 | disposition home or self-care (01) ==
LOC: ER 16:17
DX: H66.90 Otitis media, unspecified, unspecified ear (principal); H60.509 Unspecified acute noninfective otitis externa, unspecified ear; F17.200 Nicotine dependence, unspecified, uncomplicated
CPT/HCPCS: 99282; J3490